=== PATIENT | male | born 1945 | race Caucasian/White ===

== ENCOUNTER 2022-11-23 19:25 | Inpatient (IN) | payer OTHER ==
[~2022-11-23] VITALS: Ht 175.3 cm; Wt 108.9 kg
[~2022-11-23 19:25] MED LIST: AUG875 PO; IPRA3AMP9 INH; METF-518 PO
[2022-11-23 19:32] VITALS: BP_SYST 133; PULSE 89; RESP 24; TEMP 98.5; O2SAT 97
[2022-11-23] MEDS ORDERED: NACL 0.9% 1,000 ML IV ONE ×2 (20:30→22:45)
[2022-11-23 21:39] LABS: BASOPHILS % (AUTO) 0.2 % (0.0-2.0); HEMATOCRIT 46.1 % (36-54); HEMOGLOBIN 15.1 g/dL (14.0-18.0); LYMPHOCYTES # (AUTO) 0.6 K/uL (1.0-5.5); LYMPHOCYTES % (AUTO) 5.9 % (20.5-51.5); MEAN CORPUSCULAR HEMOGLOBIN 29 pg (27-31); MEAN CORPUSCULAR HGB CONC 33 % (32-36); MEAN CORPUSCULAR VOLUME 89 fL (79.0-98.0); MONOCYTES % (AUTO) 9.9 % (1.7-9.3); NEUTROPHILS # (AUTO) 8.2 K/uL (1.8-7.7); PLATELET COUNT (AUTO) 136 K/uL (130-430); RED BLOOD CELL COUNT(AUTO) 5.21 MIL/uL (4.2-6.2); RED CELL DISTRIBUTION WIDTH 13.2 % (9.0-15.0); WHITE BLOOD COUNT (AUTO) 9.7 K/uL (4.8-10.8)
[2022-11-23 21:51] LABS: ALANINE AMINOTRANSFERASE 43 U/L (12-78); ALBUMIN 2.5 g/dL (3.4-4.8); ANION GAP 4 (5-15); ASPARTATE AMINOTRANSFERASE 71 U/L (10-37); CARBON DIOXIDE 28 mmol/L (23-29); CHLORIDE 96 mmol/L (98-107); CREATININE 1.22 mg/dL (0.55-1.30); GLUCOSE 131 mg/dL (74-106); POTASSIUM 3.2 mmol/L (3.5-5.1); SODIUM SERUM 128 mmol/L (136-145); TOTAL BILIRUBIN 0.6 mg/dL (0.0-1.0); TOTAL PROTEIN, SERUM 5.7 g/dL (6.4-8.3); UREA NITROGEN, BLOOD 17 mg/dL (8-21)
[2022-11-23 21:54] LABS: LIPASE 268 U/L (73-393)
[2022-11-24] VITALS (9 sets, daily range): BP systolic 113–128; PULSE 82–98; RESP 16–19; TEMP 97.6–99.9; O2SAT 94–98
[2022-11-24 00:20] LABS: BILIRUBIN,URINE NEGATIVE (NEGATIVE); BLOOD, URINE 3+ (NEGATIVE); CLARITY/URINE CLEAR (CLEAR); COLOR,URINE YELLOW (YELLOW); GLUCOSE,URINE TRACE (NEGATIVE); KETONES,URINE NEGATIVE (NEGATIVE); LEUKOCYTE ESTERASE ,URINE NEGATIVE (NEGATIVE); NITRITE, URINE NEGATIVE (NEGATIVE); PROTEIN URINE 2+ (NEGATIVE); UROBILINOGEN,URINE 0.2 (0.2-1.0)
[2022-11-24 00:41] LABS: BACTERIA,URINE FEW /HPF (None Seen)
[2022-11-24] MEDS ORDERED: cefTRIAXone 1 GM IVPB PREMIX 50 ML IV ONE (02:45)
[2022-11-24] MEDS ORDERED: ACETAMINOPHEN 500 MG TABLET PO ONE (03:15)
[2022-11-24] MEDS ORDERED: ALBMDI INH (07:28)
[2022-11-24] MEDS ORDERED: LEVO-62 PO ×2 (07:28)
[2022-11-24] MEDS ORDERED: TRAM50TA2 PO (07:28)
[2022-11-24] MEDS ORDERED: IBUP-1969 PO ×2 (07:28)
[2022-11-24] MEDS ORDERED: BACITRACIN 1 GM OINT TP ONE (08:07)
[2022-11-24] MEDS ORDERED: IPRATROPIUM/ALBUTEROL SULFATE 3 ML AMPUL.NEB (DUONEB) INH ONE (08:45)
[2022-11-24] MEDS ORDERED: FLUT1DIS3 INH (09:12)
[2022-11-24] MEDS: D5/0.45 NS 1,000 ML IV SCH ×2 (09:24→19:00)
[2022-11-24] MEDS ORDERED: ALBUTEROL SULFATE 0.083% 2.5 MG/3 ML VIAL.NEB INH PRN (10:45)
[2022-11-24] MEDS ORDERED: traMADol HCL HCL 50 MG TABLET (ULTRAM) PO PRN (10:45)
[2022-11-24] MEDS: IPRATROPIUM/ALBUTEROL SULFATE 3 ML AMPUL.NEB (DUONEB) INH SCH ×4 (11:27→23:15)
[2022-11-24 12:00] LABS: ABG O2 SAT% ESTIMATE 90.4 % (94.0-100.0); ALLEN'S TEST POSITIVE (P); BLOOD GAS BASE EXCESS -2.6 mmol/L (-3.0-3.0); BLOOD GAS HCO3 23.5 mmol/L (21.0-27.0); BLOOD GAS PCO2 45.1 mmHg (32.0-45.0); BLOOD GAS PH 7.334 (7.350-7.450); BLOOD GAS PO2 62.3 mmHg (75.0-100.0)
[2022-11-24] MEDS: PIPERACILLIN/TAZO 3.375/DEX-IS 50 ML IV SCH ×2 (14:46→21:46)
[2022-11-24] MEDS: BUDESONIDE 0.5 MG/2 ML AMPUL.NEB INH SCH (20:23)
[2022-11-24] MEDS: ACETAMINOPHEN 325 MG TABLET PO PRN (20:52)
[2022-11-25] VITALS (15 sets, daily range): BP systolic 100–128; PULSE 74–113; RESP 16–32; TEMP 98–99; O2SAT 93–99
[2022-11-25] MEDS: IPRATROPIUM/ALBUTEROL SULFATE 3 ML AMPUL.NEB (DUONEB) INH SCH ×6 (03:00→23:20)
[2022-11-25] MEDS ORDERED: guaiFENesin/DEXTROMETHORPHAN 10 ML UDC PO PRN (04:00)
[2022-11-25] MEDS ORDERED: DIPHENHYDRAMINE INJ 50 MG/ML VIAL IVP PRN (04:00)
[2022-11-25] MEDS: D5/0.45 NS 1,000 ML IV SCH ×2 (05:08→15:00)
[2022-11-25] MEDS: PIPERACILLIN/TAZO 3.375/DEX-IS 50 ML IV SCH ×3 (05:08→21:13)
[2022-11-25] MEDS: BUDESONIDE 0.5 MG/2 ML AMPUL.NEB INH SCH ×2 (07:17→20:21)
[2022-11-25] MEDS ORDERED: KCL 40 mEq in 100 mL (PREMIX) 100 ML IV ONE (11:30)
[2022-11-25] MEDS ORDERED: LORazepam 2 MG/ML VIAL IVP ONE (12:00)
[2022-11-25] MEDS: SODIUM CHLORIDE 3% *HI-ALERT* 500 ML IV SCH (12:33)
[2022-11-25] MEDS ORDERED: POTASSIUM CHLORIDE 40 MEQ in NS 250 ML IV ONE (13:00)
[2022-11-25 18:51] LABS: BLOOD GAS PH 7.333 (7.350-7.450)
[2022-11-25 18:53] LABS: ABG O2 SAT% ESTIMATE 92.2 % (94.0-100.0); BLOOD GAS HCO3 30.6 mmol/L (21.0-27.0); BLOOD GAS PCO2 58.9 mmHg (32.0-45.0); BLOOD GAS PO2 68.5 mmHg (75.0-100.0)
[2022-11-25 18:54] LABS: ALLEN'S TEST POSITIVE (P)
[2022-11-25 19:02] LABS: BASOPHILS % (AUTO) 0.3 % (0.0-2.0); EOSINOPHILS # (AUTO) 0.1 K/uL (0.0-0.4); EOSINOPHILS % (AUTO) 0.8 % (0.0-4.0); HEMATOCRIT 46.2 % (36-54); HEMOGLOBIN 14.9 g/dL (14.0-18.0); LYMPHOCYTES # (AUTO) 0.7 K/uL (1.0-5.5); LYMPHOCYTES % (AUTO) 4.4 % (20.5-51.5); MEAN CORPUSCULAR HEMOGLOBIN 29 pg (27-31); MEAN CORPUSCULAR HGB CONC 32 % (32-36); MEAN CORPUSCULAR VOLUME 90 fL (79.0-98.0); MONOCYTES # (AUTO) 1.4 K/uL (0.0-1.0); MONOCYTES % (AUTO) 8.7 % (1.7-9.3); NEUTROPHILS # (AUTO) 14.2 K/uL (1.8-7.7); NEUTROPHILS % (AUTO) 85.8 % (40.0-70.0); PLATELET COUNT (AUTO) 210 K/uL (130-430); RED BLOOD CELL COUNT(AUTO) 5.16 MIL/uL (4.2-6.2); RED CELL DISTRIBUTION WIDTH 13.7 % (9.0-15.0); WHITE BLOOD COUNT (AUTO) 16.5 K/uL (4.8-10.8)
[2022-11-25] MEDS: AZITHROMYCIN 500 MG in NS 250 ML IV SCH (21:12)
[2022-11-26] VITALS (29 sets, daily range): BP systolic 99–139; PULSE 79–112; RESP 14–39; TEMP 96.4–97.9; O2SAT 91–100
[2022-11-26] MEDS: D5/0.45 NS 1,000 ML IV SCH ×2 (03:19→14:11)
[2022-11-26] MEDS: IPRATROPIUM/ALBUTEROL SULFATE 3 ML AMPUL.NEB (DUONEB) INH SCH ×6 (03:37→23:30)
[2022-11-26 05:02] LABS: ANION GAP 4 (5-15); CALCIUM 8.2 mg/dL (8.4-11.0); CARBON DIOXIDE 30 mmol/L (23-29); CHLORIDE 99 mmol/L (98-107); CREATININE 1.23 mg/dL (0.55-1.30); GLUCOSE 162 mg/dL (74-106); POTASSIUM 4.3 mmol/L (3.5-5.1); SODIUM SERUM 133 mmol/L (136-145); UREA NITROGEN, BLOOD 20 mg/dL (8-21)
[2022-11-26 05:05] LABS: BASOPHILS % (AUTO) 0.3 % (0.0-2.0); EOSINOPHILS % (AUTO) 0.1 % (0.0-4.0); HEMATOCRIT 44.8 % (36-54); HEMOGLOBIN 14.5 g/dL (14.0-18.0); LYMPHOCYTES # (AUTO) 0.5 K/uL (1.0-5.5); LYMPHOCYTES % (AUTO) 3.1 % (20.5-51.5); MEAN CORPUSCULAR HEMOGLOBIN 29 pg (27-31); MEAN CORPUSCULAR HGB CONC 32 % (32-36); MEAN CORPUSCULAR VOLUME 90 fL (79.0-98.0); MONOCYTES # (AUTO) 1.3 K/uL (0.0-1.0); MONOCYTES % (AUTO) 8.1 % (1.7-9.3); NEUTROPHILS # (AUTO) 14.4 K/uL (1.8-7.7); NEUTROPHILS % (AUTO) 88.4 % (40.0-70.0); PLATELET COUNT (AUTO) 194 K/uL (130-430); RED CELL DISTRIBUTION WIDTH 13.7 % (9.0-15.0); WHITE BLOOD COUNT (AUTO) 16.3 K/uL (4.8-10.8)
[2022-11-26] MEDS: PIPERACILLIN/TAZO 3.375/DEX-IS 50 ML IV SCH ×3 (05:05→21:29)
[2022-11-26] MEDS: BUDESONIDE 0.5 MG/2 ML AMPUL.NEB INH SCH ×2 (07:00→19:00)
[2022-11-26 08:00] LABS: BLOOD GAS PCO2 62.6 mmHg (32.0-45.0); BLOOD GAS PH 7.265 (7.350-7.450)
[2022-11-26 08:01] LABS: BLOOD GAS BASE EXCESS -0.8 mmol/L (-3.0-3.0); BLOOD GAS HCO3 27.8 mmol/L (21.0-27.0)
[2022-11-26 08:02] LABS: ABG O2 SAT% ESTIMATE 93.2 % (94.0-100.0); ALLEN'S TEST POSITIVE (P)
[2022-11-26] MEDS ORDERED: INSULIN REGULAR, HUMAN 100 UNITS/ML, 3 ML VIAL (humuLIN R) SUBCUT PRN (11:00)
[2022-11-26] MEDS: SODIUM CHLORIDE 3% *HI-ALERT* 500 ML IV SCH (12:00)
[2022-11-26] MEDS: AZITHROMYCIN 500 MG in NS 250 ML IV SCH (18:57)
[2022-11-27] VITALS (44 sets, daily range): BP systolic 98–158; PULSE 80–100; RESP 20–35; TEMP 96.8–97.3; O2SAT 91–99
[2022-11-27] MEDS: D5/0.45 NS 1,000 ML IV SCH ×3 (01:57→17:53)
[2022-11-27] MEDS: IPRATROPIUM/ALBUTEROL SULFATE 3 ML AMPUL.NEB (DUONEB) INH SCH ×6 (02:04→23:15)
[2022-11-27] MEDS: PIPERACILLIN/TAZO 3.375/DEX-IS 50 ML IV SCH ×3 (05:18→21:59)
[2022-11-27 05:44] LABS: BASOPHILS % (AUTO) 0.2 % (0.0-2.0); EOSINOPHILS # (AUTO) 0.1 K/uL (0.0-0.4); EOSINOPHILS % (AUTO) 0.8 % (0.0-4.0); HEMATOCRIT 39.8 % (36-54); HEMOGLOBIN 12.9 g/dL (14.0-18.0); LYMPHOCYTES # (AUTO) 0.5 K/uL (1.0-5.5); LYMPHOCYTES % (AUTO) 4.2 % (20.5-51.5); MEAN CORPUSCULAR HEMOGLOBIN 29 pg (27-31); MEAN CORPUSCULAR HGB CONC 32 % (32-36); MEAN CORPUSCULAR VOLUME 90 fL (79.0-98.0); MONOCYTES # (AUTO) 0.9 K/uL (0.0-1.0); MONOCYTES % (AUTO) 6.8 % (1.7-9.3); NEUTROPHILS # (AUTO) 11.1 K/uL (1.8-7.7); PLATELET COUNT (AUTO) 194 K/uL (130-430); WHITE BLOOD COUNT (AUTO) 12.6 K/uL (4.8-10.8)
[2022-11-27 05:52] LABS: ANION GAP 2 (5-15); CALCIUM 8.1 mg/dL (8.4-11.0); CARBON DIOXIDE 32 mmol/L (23-29); CHLORIDE 103 mmol/L (98-107); CREATININE 1.05 mg/dL (0.55-1.30); GLUCOSE 177 mg/dL (74-106); POTASSIUM 3.9 mmol/L (3.5-5.1); SODIUM SERUM 137 mmol/L (136-145); UREA NITROGEN, BLOOD 22 mg/dL (8-21)
[2022-11-27] MEDS: BUDESONIDE 0.5 MG/2 ML AMPUL.NEB INH SCH ×2 (08:52→20:05)
[2022-11-27 09:46] LABS: BLOOD GAS HCO3 30.5 mmol/L (21.0-27.0); BLOOD GAS PCO2 52.7 mmHg (32.0-45.0); BLOOD GAS PO2 72.3 mmHg (75.0-100.0)
[2022-11-27 09:47] LABS: ABG O2 SAT% ESTIMATE 94.1 % (94.0-100.0); ALLEN'S TEST POSITIVE (P)
[2022-11-27 12:04] LABS: INR 1.1 (0.80-1.20); PROTHROMBIN TIME 10.9 SECS (9.5-12.5)
[2022-11-27] MEDS: AZITHROMYCIN 500 MG in NS 250 ML IV SCH (18:24)
[2022-11-28] VITALS (46 sets, daily range): BP systolic 102–163; PULSE 76–95; RESP 19–45; TEMP 97–97.8; O2SAT 85–99
[2022-11-28] MEDS: D5/0.45 NS 1,000 ML IV SCH ×3 (01:39→14:01)
[2022-11-28] MEDS: IPRATROPIUM/ALBUTEROL SULFATE 3 ML AMPUL.NEB (DUONEB) INH SCH ×6 (02:50→22:50)
[2022-11-28 04:49] LABS: BASOPHILS % (AUTO) 0.4 % (0.0-2.0); EOSINOPHILS # (AUTO) 0.1 K/uL (0.0-0.4); EOSINOPHILS % (AUTO) 1.4 % (0.0-4.0); HEMATOCRIT 39.4 % (36-54); HEMOGLOBIN 12.6 g/dL (14.0-18.0); LYMPHOCYTES # (AUTO) 0.5 K/uL (1.0-5.5); LYMPHOCYTES % (AUTO) 5.7 % (20.5-51.5); MEAN CORPUSCULAR HEMOGLOBIN 29 pg (27-31); MEAN CORPUSCULAR HGB CONC 32 % (32-36); MEAN CORPUSCULAR VOLUME 90 fL (79.0-98.0); MONOCYTES # (AUTO) 0.7 K/uL (0.0-1.0); MONOCYTES % (AUTO) 7.9 % (1.7-9.3); NEUTROPHILS # (AUTO) 7.9 K/uL (1.8-7.7); NEUTROPHILS % (AUTO) 84.6 % (40.0-70.0); PLATELET COUNT (AUTO) 228 K/uL (130-430); RED BLOOD CELL COUNT(AUTO) 4.39 MIL/uL (4.2-6.2); RED CELL DISTRIBUTION WIDTH 13.9 % (9.0-15.0); WHITE BLOOD COUNT (AUTO) 9.3 K/uL (4.8-10.8)
[2022-11-28 05:20] LABS: ALANINE AMINOTRANSFERASE 40 U/L (12-78); ALBUMIN 1.7 g/dL (3.4-4.8); ANION GAP 1 (5-15); ASPARTATE AMINOTRANSFERASE 61 U/L (10-37); CARBON DIOXIDE 33 mmol/L (23-29); CHLORIDE 104 mmol/L (98-107); CREATININE 0.87 mg/dL (0.55-1.30); GLUCOSE 156 mg/dL (74-106); POTASSIUM 3.8 mmol/L (3.5-5.1); SODIUM SERUM 138 mmol/L (136-145); TOTAL BILIRUBIN 0.4 mg/dL (0.0-1.0); UREA NITROGEN, BLOOD 19 mg/dL (8-21)
[2022-11-28] MEDS: PIPERACILLIN/TAZO 3.375/DEX-IS 50 ML IV SCH ×3 (05:24→22:00)
[2022-11-28] MEDS: BUDESONIDE 0.5 MG/2 ML AMPUL.NEB INH SCH ×2 (07:47→20:25)
[2022-11-28 08:12] LABS: ALLEN'S TEST POSITIVE (P)
[2022-11-28 08:57] LABS: BLOOD GAS PH 7.328 (7.350-7.450)
[2022-11-28 08:58] LABS: BLOOD GAS PCO2 66.9 mmHg (32.0-45.0)
[2022-11-28 09:00] LABS: BLOOD GAS BASE EXCESS 5.9 mmol/L (-3.0-3.0); BLOOD GAS HCO3 34.3 mmol/L (21.0-27.0)
[2022-11-28 09:02] LABS: ABG O2 SAT% ESTIMATE 93.6 % (94.0-100.0)
[2022-11-28 14:06] LABS: WEST NILE VIRUS, IgG, SERUM Positive (Negative)
[2022-11-28] MEDS: AZITHROMYCIN 500 MG in NS 250 ML IV SCH (18:44)
[2022-11-29] VITALS (39 sets, daily range): BP systolic 95–162; PULSE 71–100; RESP 16–35; TEMP 96.6–98.1; O2SAT 90–96
[2022-11-29] MEDS: IPRATROPIUM/ALBUTEROL SULFATE 3 ML AMPUL.NEB (DUONEB) INH SCH ×6 (03:15→23:04)
[2022-11-29 05:01] LABS: BASOPHILS # (AUTO) 0.1 K/uL (0.0-0.2); BASOPHILS % (AUTO) 0.5 % (0.0-2.0); EOSINOPHILS # (AUTO) 0.2 K/uL (0.0-0.4); EOSINOPHILS % (AUTO) 1.6 % (0.0-4.0); HEMATOCRIT 40.5 % (36-54); LYMPHOCYTES # (AUTO) 0.9 K/uL (1.0-5.5); LYMPHOCYTES % (AUTO) 7.4 % (20.5-51.5); MEAN CORPUSCULAR HEMOGLOBIN 29 pg (27-31); MEAN CORPUSCULAR HGB CONC 32 % (32-36); MEAN CORPUSCULAR VOLUME 91 fL (79.0-98.0); MONOCYTES # (AUTO) 1.7 K/uL (0.0-1.0); MONOCYTES % (AUTO) 13.4 % (1.7-9.3); NEUTROPHILS # (AUTO) 9.7 K/uL (1.8-7.7); NEUTROPHILS % (AUTO) 77.1 % (40.0-70.0); PLATELET COUNT (AUTO) 250 K/uL (130-430); RED BLOOD CELL COUNT(AUTO) 4.47 MIL/uL (4.2-6.2); RED CELL DISTRIBUTION WIDTH 14.2 % (9.0-15.0); WHITE BLOOD COUNT (AUTO) 12.5 K/uL (4.8-10.8)
[2022-11-29 05:21] LABS: ALANINE AMINOTRANSFERASE 46 U/L (12-78); ALBUMIN 1.7 g/dL (3.4-4.8); ANION GAP 1 (5-15); ASPARTATE AMINOTRANSFERASE 55 U/L (10-37); CARBON DIOXIDE 32 mmol/L (23-29); CHLORIDE 104 mmol/L (98-107); CREATININE 0.84 mg/dL (0.55-1.30); GLUCOSE 152 mg/dL (74-106); POTASSIUM 4.3 mmol/L (3.5-5.1); SODIUM SERUM 137 mmol/L (136-145); TOTAL BILIRUBIN 0.6 mg/dL (0.0-1.0); TOTAL PROTEIN, SERUM 5.2 g/dL (6.4-8.3); UREA NITROGEN, BLOOD 14 mg/dL (8-21)
[2022-11-29] MEDS: PIPERACILLIN/TAZO 3.375/DEX-IS 50 ML IV SCH ×3 (05:36→21:30)
[2022-11-29] MEDS: BUDESONIDE 0.5 MG/2 ML AMPUL.NEB INH SCH ×2 (07:57→19:40)
[2022-11-29] MEDS ORDERED: FUROSEMIDE 40 MG/4 ML VIAL IVP ONE (08:45)
[2022-11-29 08:46] LABS: BLOOD GAS PCO2 45.1 mmHg (32.0-45.0); BLOOD GAS PH 7.426 (7.350-7.450); BLOOD GAS PO2 56.9 mmHg (75.0-100.0)
[2022-11-29 08:47] LABS: ABG O2 SAT% ESTIMATE 90.1 % (94.0-100.0); ALLEN'S TEST MODIFIED (P); BLOOD GAS BASE EXCESS 3.9 mmol/L (-3.0-3.0)
[2022-11-29] MEDS: D5/0.45 NS 1,000 ML IV SCH ×2 (09:41→19:54)
[2022-11-29] MEDS: AZITHROMYCIN 500 MG in NS 250 ML IV SCH (19:03)
[2022-11-29 19:06] LABS: MYCOPLASMA PNEUMONIAE IgM <770 U/mL (0-769)
[2022-11-30] VITALS (31 sets, daily range): BP systolic 131–180; PULSE 87–114; RESP 20–38; TEMP 97.7–98.4; O2SAT 85–97
[2022-11-30] MEDS: IPRATROPIUM/ALBUTEROL SULFATE 3 ML AMPUL.NEB (DUONEB) INH SCH ×6 (03:01→23:05)
[2022-11-30] MEDS: D5/0.45 NS 1,000 ML IV SCH ×2 (05:00→15:00)
[2022-11-30] MEDS: PIPERACILLIN/TAZO 3.375/DEX-IS 50 ML IV SCH ×3 (05:42→21:07)
[2022-11-30 05:58] LABS: BASOPHILS % (AUTO) 0.4 % (0.0-2.0); EOSINOPHILS # (AUTO) 0.1 K/uL (0.0-0.4); EOSINOPHILS % (AUTO) 0.8 % (0.0-4.0); HEMATOCRIT 43.7 % (36-54); HEMOGLOBIN 14.1 g/dL (14.0-18.0); LYMPHOCYTES # (AUTO) 0.6 K/uL (1.0-5.5); LYMPHOCYTES % (AUTO) 6.7 % (20.5-51.5); MEAN CORPUSCULAR HEMOGLOBIN 29 pg (27-31); MEAN CORPUSCULAR HGB CONC 32 % (32-36); MEAN CORPUSCULAR VOLUME 91 fL (79.0-98.0); MONOCYTES # (AUTO) 0.9 K/uL (0.0-1.0); NEUTROPHILS # (AUTO) 8.1 K/uL (1.8-7.7); NEUTROPHILS % (AUTO) 83.1 % (40.0-70.0); PLATELET COUNT (AUTO) 263 K/uL (130-430); RED BLOOD CELL COUNT(AUTO) 4.82 MIL/uL (4.2-6.2); RED CELL DISTRIBUTION WIDTH 13.9 % (9.0-15.0); WHITE BLOOD COUNT (AUTO) 9.7 K/uL (4.8-10.8)
[2022-11-30 06:25] LABS: ANION GAP 2 (5-15); CALCIUM 8.5 mg/dL (8.4-11.0); CARBON DIOXIDE 35 mmol/L (23-29); CHLORIDE 102 mmol/L (98-107); CREATININE 0.95 mg/dL (0.55-1.30); GLUCOSE 136 mg/dL (74-106); POTASSIUM 3.9 mmol/L (3.5-5.1); SODIUM SERUM 139 mmol/L (136-145); UREA NITROGEN, BLOOD 15 mg/dL (8-21)
[2022-11-30 07:04] LABS: ERYTHROCYTE SEDIMENTATION RATE 53 MM/HR (0-15)
[2022-11-30] MEDS: BUDESONIDE 0.5 MG/2 ML AMPUL.NEB INH SCH ×2 (07:18→19:55)
[2022-11-30] MEDS ORDERED: *TPN PER PHARMACY XX PRN (11:15)
[2022-11-30 11:43] LABS: PHOSPHORUS 2.3 mg/dL (2.7-4.5)
[2022-11-30] MEDS ORDERED: FUROSEMIDE 40 MG/4 ML VIAL IVP ONE (11:45)
[2022-11-30 12:17] LABS: INR 1.1 (0.80-1.20); PROTHROMBIN TIME 11.4 SECS (9.5-12.5)
[2022-11-30] MEDS ORDERED: cloNIDine HCL 0.1 MG TABLET PO PRN (15:45)
[2022-11-30] MEDS: ACETAMINOPHEN 325 MG TABLET PO PRN (17:48)
[2022-11-30] MEDS ORDERED: POTASSIUM CHLORIDE IV SCH ×8 (21:00)
[2022-11-30] MEDS ORDERED: SODIUM CHLORIDE IV SCH ×8 (21:00)
[2022-11-30] MEDS ORDERED: D5/0.45 NS 1,000 ML IV SCH (21:00)
[2022-11-30] MEDS ORDERED: [UNRECOGNIZED DRUG - OTHER] IV SCH ×8 (21:00)
[2022-11-30] MEDS ORDERED: TPN PERIPHERAL IV SCH ×8 (21:00)
[2022-11-30 23:06] LABS: COCCIDIOIDES AB IGG 0.4 IV (<=0.9); COCCIDIOIDES AB IGM 0.1 IV (<=0.9)
[2022-11-30 23:43] LABS: ABG O2 SAT% ESTIMATE 89.7 % (94.0-100.0); BLOOD GAS BASE EXCESS 8.9 mmol/L (-3.0-3.0); BLOOD GAS HCO3 47.5 mmol/L (21.0-27.0); BLOOD GAS PO2 90.2 mmHg (75.0-100.0)
[2022-11-30 23:50] LABS: BLOOD GAS PCO2 193.6 mmHg (32.0-45.0); BLOOD GAS PH 7.008 (7.350-7.450)
[2022-12-01] VITALS (35 sets, daily range): BP systolic 61–161; PULSE 81–117; RESP 16–41; TEMP 97.3–99.5; O2SAT 91–99
[2022-12-01] MEDS ORDERED: PROPOFOL DRIP 100 ML IV ONE (00:35)
[2022-12-01] MEDS: D5/0.45 NS 1,000 ML IV SCH ×3 (01:00→20:37)
[2022-12-01] MEDS ORDERED: NOREPINEPHRINE 4 MG/4 ML VIAL IV ONE ×2 (01:12→03:41)
[2022-12-01 01:47] LABS: ABG O2 SAT% ESTIMATE 89.8 % (94.0-100.0); BLOOD GAS BASE EXCESS 5.6 mmol/L (-3.0-3.0); BLOOD GAS HCO3 37.1 mmol/L (21.0-27.0); BLOOD GAS PO2 70.9 mmHg (75.0-100.0)
[2022-12-01 01:49] LABS: BLOOD GAS PCO2 92.4 mmHg (32.0-45.0); BLOOD GAS PH 7.222 (7.350-7.450)
[2022-12-01] MEDS ORDERED: NOREPINEPHRINE BITARTRATE 4 MG in NS 246 ML IV PRN (02:15)
[2022-12-01] MEDS ORDERED: SUCCINYLCHOLINE CHLORIDE 20 MG/ML(QUELICIN) IVP ONE (02:15)
[2022-12-01] MEDS ORDERED: ETOMIDATE 20 MG/ 10 ML VIAL (AMIDATE) IVP ONE (02:15)
[2022-12-01] MEDS: IPRATROPIUM/ALBUTEROL SULFATE 3 ML AMPUL.NEB (DUONEB) INH SCH ×6 (03:05→23:11)
[2022-12-01] MEDS: PROPOFOL DRIP 100 ML IV PRN ×2 (03:37→14:13)
[2022-12-01] MEDS: NOREPINEPHRINE BITARTRATE 16 MG in NS 234 ML IV PRN (04:10)
[2022-12-01] MEDS: PIPERACILLIN/TAZO 3.375/DEX-IS 50 ML IV SCH ×3 (05:07→21:02)
[2022-12-01 06:10] LABS: BASOPHILS % (AUTO) 0.2 % (0.0-2.0); EOSINOPHILS % (AUTO) 0.2 % (0.0-4.0); HEMOGLOBIN 13.7 g/dL (14.0-18.0); LYMPHOCYTES # (AUTO) 1.1 K/uL (1.0-5.5); LYMPHOCYTES % (AUTO) 5.7 % (20.5-51.5); MEAN CORPUSCULAR HEMOGLOBIN 29 pg (27-31); MEAN CORPUSCULAR HGB CONC 32 % (32-36); MEAN CORPUSCULAR VOLUME 91 fL (79.0-98.0); MONOCYTES # (AUTO) 1.6 K/uL (0.0-1.0); MONOCYTES % (AUTO) 8.6 % (1.7-9.3); NEUTROPHILS # (AUTO) 15.9 K/uL (1.8-7.7); NEUTROPHILS % (AUTO) 85.3 % (40.0-70.0); PLATELET COUNT (AUTO) 314 K/uL (130-430); RED CELL DISTRIBUTION WIDTH 14.2 % (9.0-15.0); WHITE BLOOD COUNT (AUTO) 18.7 K/uL (4.8-10.8)
[2022-12-01 06:46] LABS: ERYTHROCYTE SEDIMENTATION RATE 77 MM/HR (0-15)
[2022-12-01 06:47] LABS: ANION GAP 4 (5-15); CALCIUM 8.5 mg/dL (8.4-11.0); CARBON DIOXIDE 33 mmol/L (23-29); CHLORIDE 100 mmol/L (98-107); CREATININE 1.25 mg/dL (0.55-1.30); GLUCOSE 164 mg/dL (74-106); POTASSIUM 4.4 mmol/L (3.5-5.1); SODIUM SERUM 137 mmol/L (136-145); UREA NITROGEN, BLOOD 23 mg/dL (8-21)
[2022-12-01] MEDS: BUDESONIDE 0.5 MG/2 ML AMPUL.NEB INH SCH ×2 (07:28→19:45)
[2022-12-01] MEDS ORDERED: PANTOPRAZOLE SODIUM 40 MG in NS 50 ML IV SCH (08:00)
[2022-12-01] MEDS ORDERED: PANTOPRAZOLE SODIUM 40 MG/VIAL (PROTONIX) IVP SCH (09:00)
[2022-12-01] MEDS ORDERED: PANTOPRAZOLE SODIUM 40 MG/VIAL (PROTONIX) IVP ONE (09:15)
[2022-12-01 12:23] LABS: ABG O2 SAT% ESTIMATE 93.8 % (94.0-100.0); BLOOD GAS BASE EXCESS 11.6 mmol/L (-3.0-3.0); BLOOD GAS HCO3 35.3 mmol/L (21.0-27.0); BLOOD GAS PCO2 41.9 mmHg (32.0-45.0); BLOOD GAS PO2 60.8 mmHg (75.0-100.0)
[2022-12-01 12:24] LABS: BLOOD GAS PH 7.544 (7.350-7.450)
[2022-12-01] MEDS: FLUCONAZOLE 200 mg/ NS 100 ML IV SCH (17:00)
[2022-12-01] MEDS: PANTOPRAZOLE SODIUM 40 MG/VIAL (PROTONIX) IVP SCH (20:43)
[2022-12-02] VITALS (51 sets, daily range): BP systolic 93–135; PULSE 74–105; RESP 16–24; TEMP 98.1–100; O2SAT 90–100
[2022-12-02] MEDS: PROPOFOL DRIP 100 ML IV PRN ×2 (02:06→17:18)
[2022-12-02] MEDS: NOREPINEPHRINE BITARTRATE 16 MG in NS 234 ML IV PRN (02:14)
[2022-12-02] MEDS: IPRATROPIUM/ALBUTEROL SULFATE 3 ML AMPUL.NEB (DUONEB) INH SCH ×6 (02:45→22:50)
[2022-12-02 05:15] LABS: BASOPHILS # (AUTO) 0.1 K/uL (0.0-0.2); BASOPHILS % (AUTO) 0.7 % (0.0-2.0); EOSINOPHILS # (AUTO) 0.2 K/uL (0.0-0.4); EOSINOPHILS % (AUTO) 1.1 % (0.0-4.0); HEMATOCRIT 37.9 % (36-54); HEMOGLOBIN 12.3 g/dL (14.0-18.0); LYMPHOCYTES # (AUTO) 1.3 K/uL (1.0-5.5); LYMPHOCYTES % (AUTO) 7.4 % (20.5-51.5); MEAN CORPUSCULAR HEMOGLOBIN 29 pg (27-31); MEAN CORPUSCULAR HGB CONC 33 % (32-36); MEAN CORPUSCULAR VOLUME 91 fL (79.0-98.0); MONOCYTES # (AUTO) 1.2 K/uL (0.0-1.0); MONOCYTES % (AUTO) 7.1 % (1.7-9.3); NEUTROPHILS # (AUTO) 14.5 K/uL (1.8-7.7); NEUTROPHILS % (AUTO) 83.7 % (40.0-70.0); PLATELET COUNT (AUTO) 277 K/uL (130-430); RED BLOOD CELL COUNT(AUTO) 4.18 MIL/uL (4.2-6.2); RED CELL DISTRIBUTION WIDTH 13.9 % (9.0-15.0); WHITE BLOOD COUNT (AUTO) 17.3 K/uL (4.8-10.8)
[2022-12-02 05:26] LABS: ERYTHROCYTE SEDIMENTATION RATE 57 MM/HR (0-15)
[2022-12-02] MEDS: PIPERACILLIN/TAZO 3.375/DEX-IS 50 ML IV SCH ×3 (05:30→22:20)
[2022-12-02 05:50] LABS: ALANINE AMINOTRANSFERASE 92 U/L (12-78); ANION GAP 4 (5-15); ASPARTATE AMINOTRANSFERASE 58 U/L (10-37); CALCIUM 8.2 mg/dL (8.4-11.0); CARBON DIOXIDE 35 mmol/L (23-29); CHLORIDE 102 mmol/L (98-107); CREATININE 1.13 mg/dL (0.55-1.30); GLUCOSE 142 mg/dL (74-106); POTASSIUM 3.8 mmol/L (3.5-5.1); SODIUM SERUM 141 mmol/L (136-145); TOTAL BILIRUBIN 0.8 mg/dL (0.0-1.0); TOTAL PROTEIN, SERUM 5.3 g/dL (6.4-8.3); UREA NITROGEN, BLOOD 33 mg/dL (8-21)
[2022-12-02] MEDS: D5/0.45 NS 1,000 ML IV SCH ×2 (07:00→17:00)
[2022-12-02] MEDS: BUDESONIDE 0.5 MG/2 ML AMPUL.NEB INH SCH ×2 (07:25→19:45)
[2022-12-02] MEDS ORDERED: MIDAZOLAM HCL 5 MG/5 ML VIAL ONE (08:24)
[2022-12-02] MEDS ORDERED: SIMETHICONE 40 MG/0.6 ML ML ONE (08:24)
[2022-12-02] MEDS ORDERED: fentaNYL CITRATE/PF 100 MCG/2 ML AMP ONE (08:24)
[2022-12-02] MEDS: PANTOPRAZOLE SODIUM 40 MG/VIAL (PROTONIX) IVP SCH ×2 (10:17→21:08)
[2022-12-02] MEDS ORDERED: VANCOMYCIN HCL 1.25 GM/NS 250 ML IV ONE (13:00)
[2022-12-02] MEDS: FLUCONAZOLE 200 mg/ NS 100 ML IV SCH (17:15)
[2022-12-03] VITALS (58 sets, daily range): BP systolic 95–137; PULSE 71–100; RESP 13–20; TEMP 98.1–100.2; O2SAT 91–97
[2022-12-03] MEDS: D5/0.45 NS 1,000 ML IV SCH ×3 (01:17→23:02)
[2022-12-03] MEDS: IPRATROPIUM/ALBUTEROL SULFATE 3 ML AMPUL.NEB (DUONEB) INH SCH ×6 (03:20→23:24)
[2022-12-03 04:51] LABS: BASOPHILS % (AUTO) 0.3 % (0.0-2.0); EOSINOPHILS # (AUTO) 0.1 K/uL (0.0-0.4); EOSINOPHILS % (AUTO) 0.9 % (0.0-4.0); HEMATOCRIT 34.2 % (36-54); HEMOGLOBIN 11.2 g/dL (14.0-18.0); LYMPHOCYTES # (AUTO) 1.3 K/uL (1.0-5.5); LYMPHOCYTES % (AUTO) 9.1 % (20.5-51.5); MEAN CORPUSCULAR HEMOGLOBIN 29 pg (27-31); MEAN CORPUSCULAR HGB CONC 33 % (32-36); MEAN CORPUSCULAR VOLUME 90 fL (79.0-98.0); MONOCYTES # (AUTO) 1.1 K/uL (0.0-1.0); MONOCYTES % (AUTO) 7.7 % (1.7-9.3); NEUTROPHILS # (AUTO) 11.2 K/uL (1.8-7.7); PLATELET COUNT (AUTO) 228 K/uL (130-430); RED BLOOD CELL COUNT(AUTO) 3.81 MIL/uL (4.2-6.2); RED CELL DISTRIBUTION WIDTH 13.7 % (9.0-15.0); WHITE BLOOD COUNT (AUTO) 13.7 K/uL (4.8-10.8)
[2022-12-03] MEDS: PIPERACILLIN/TAZO 3.375/DEX-IS 50 ML IV SCH ×3 (05:25→21:30)
[2022-12-03 05:34] LABS: ANION GAP 3 (5-15); CALCIUM 8.1 mg/dL (8.4-11.0); CARBON DIOXIDE 33 mmol/L (23-29); CHLORIDE 101 mmol/L (98-107); CREATININE 1.02 mg/dL (0.55-1.30); GLUCOSE 143 mg/dL (74-106); POTASSIUM 3.5 mmol/L (3.5-5.1); SODIUM SERUM 137 mmol/L (136-145); UREA NITROGEN, BLOOD 31 mg/dL (8-21)
[2022-12-03] MEDS: BUDESONIDE 0.5 MG/2 ML AMPUL.NEB INH SCH ×2 (07:22→20:04)
[2022-12-03] MEDS: PROPOFOL DRIP 100 ML IV PRN (09:26)
[2022-12-03] MEDS: PANTOPRAZOLE SODIUM 40 MG/VIAL (PROTONIX) IVP SCH ×2 (10:00→21:30)
[2022-12-03] MEDS: ACYCLOVIR IV SCH ×2 (15:54→23:01)
[2022-12-03] MEDS: D5W IV SCH ×2 (15:54→23:01)
[2022-12-03] MEDS: FLUCONAZOLE 200 mg/ NS 100 ML IV SCH (18:13)
[2022-12-04] VITALS (29 sets, daily range): BP systolic 88–128; PULSE 65–91; RESP 17–20; TEMP 97.2–99.6; O2SAT 91–100
[2022-12-04] MEDS: IPRATROPIUM/ALBUTEROL SULFATE 3 ML AMPUL.NEB (DUONEB) INH SCH ×6 (03:47→23:05)
[2022-12-04 05:07] LABS: BASOPHILS % (AUTO) 0.3 % (0.0-2.0); EOSINOPHILS # (AUTO) 0.1 K/uL (0.0-0.4); EOSINOPHILS % (AUTO) 1.3 % (0.0-4.0); HEMATOCRIT 34.7 % (36-54); HEMOGLOBIN 11.2 g/dL (14.0-18.0); LYMPHOCYTES % (AUTO) 9.6 % (20.5-51.5); MEAN CORPUSCULAR HEMOGLOBIN 29 pg (27-31); MEAN CORPUSCULAR HGB CONC 32 % (32-36); MEAN CORPUSCULAR VOLUME 91 fL (79.0-98.0); MONOCYTES # (AUTO) 0.7 K/uL (0.0-1.0); MONOCYTES % (AUTO) 7.1 % (1.7-9.3); NEUTROPHILS # (AUTO) 8.2 K/uL (1.8-7.7); NEUTROPHILS % (AUTO) 81.7 % (40.0-70.0); PLATELET COUNT (AUTO) 197 K/uL (130-430); RED BLOOD CELL COUNT(AUTO) 3.83 MIL/uL (4.2-6.2); RED CELL DISTRIBUTION WIDTH 13.6 % (9.0-15.0); WHITE BLOOD COUNT (AUTO) 10.1 K/uL (4.8-10.8)
[2022-12-04] MEDS: PROPOFOL DRIP 100 ML IV PRN (05:18)
[2022-12-04] MEDS: PIPERACILLIN/TAZO 3.375/DEX-IS 50 ML IV SCH ×3 (05:19→21:17)
[2022-12-04 05:27] LABS: ANION GAP 5 (5-15); CALCIUM 7.9 mg/dL (8.4-11.0); CARBON DIOXIDE 31 mmol/L (23-29); CHLORIDE 102 mmol/L (98-107); CREATININE 0.94 mg/dL (0.55-1.30); GLUCOSE 135 mg/dL (74-106); POTASSIUM 3.2 mmol/L (3.5-5.1); SODIUM SERUM 138 mmol/L (136-145); UREA NITROGEN, BLOOD 20 mg/dL (8-21)
[2022-12-04] MEDS: ACYCLOVIR IV SCH (06:44)
[2022-12-04] MEDS: D5W IV SCH (06:44)
[2022-12-04] MEDS: BUDESONIDE 0.5 MG/2 ML AMPUL.NEB INH SCH ×2 (07:13→19:56)
[2022-12-04] MEDS ORDERED: clonazePAM 0.5 MG TABLET NG SCH (09:00)
[2022-12-04] MEDS: PANTOPRAZOLE SODIUM 40 MG/VIAL (PROTONIX) IVP SCH ×2 (10:37→21:16)
[2022-12-04] MEDS: D5/0.45 NS 1,000 ML IV SCH (10:39)
[2022-12-04 13:42] LABS: ABG O2 SAT% ESTIMATE 97.1 % (94.0-100.0); BLOOD GAS BASE EXCESS 5.2 mmol/L (-3.0-3.0); BLOOD GAS HCO3 30.5 mmol/L (21.0-27.0); BLOOD GAS PCO2 46.5 mmHg (32.0-45.0); BLOOD GAS PH 7.434 (7.350-7.450); BLOOD GAS PO2 90.1 mmHg (75.0-100.0)
[2022-12-04] MEDS: FLUCONAZOLE 200 mg/ NS 100 ML IV SCH (17:39)
[2022-12-05] VITALS (37 sets, daily range): BP systolic 85–136; PULSE 60–90; RESP 8–28; TEMP 97.4–98.7; O2SAT 91–99
[2022-12-05] MEDS: D5/0.45 NS 1,000 ML IV SCH ×2 (02:51→14:19)
[2022-12-05] MEDS: IPRATROPIUM/ALBUTEROL SULFATE 3 ML AMPUL.NEB (DUONEB) INH SCH ×6 (03:00→23:17)
[2022-12-05] MEDS: PIPERACILLIN/TAZO 3.375/DEX-IS 50 ML IV SCH ×3 (05:08→22:48)
[2022-12-05 05:33] LABS: BASOPHILS # (AUTO) 0.2 K/uL (0.0-0.2); EOSINOPHILS # (AUTO) 0.1 K/uL (0.0-0.4); HEMATOCRIT 35.6 % (36-54); HEMOGLOBIN 11.4 g/dL (14.0-18.0); LYMPHOCYTES # (AUTO) 1.1 K/uL (1.0-5.5); LYMPHOCYTES % (AUTO) 10.8 % (20.5-51.5); MEAN CORPUSCULAR HEMOGLOBIN 29 pg (27-31); MEAN CORPUSCULAR HGB CONC 32 % (32-36); MEAN CORPUSCULAR VOLUME 91 fL (79.0-98.0); MONOCYTES # (AUTO) 0.7 K/uL (0.0-1.0); MONOCYTES % (AUTO) 6.7 % (1.7-9.3); NEUTROPHILS # (AUTO) 7.9 K/uL (1.8-7.7); NEUTROPHILS % (AUTO) 79.5 % (40.0-70.0); PLATELET COUNT (AUTO) 172 K/uL (130-430); RED CELL DISTRIBUTION WIDTH 14.1 % (9.0-15.0); WHITE BLOOD COUNT (AUTO) 9.9 K/uL (4.8-10.8)
[2022-12-05 06:12] LABS: ALANINE AMINOTRANSFERASE 82 U/L (12-78); ALBUMIN 1.7 g/dL (3.4-4.8); ANION GAP 3 (5-15); ASPARTATE AMINOTRANSFERASE 71 U/L (10-37); CALCIUM 8.1 mg/dL (8.4-11.0); CARBON DIOXIDE 32 mmol/L (23-29); CHLORIDE 100 mmol/L (98-107); CREATININE 0.94 mg/dL (0.55-1.30); GLUCOSE 123 mg/dL (74-106); POTASSIUM 3.9 mmol/L (3.5-5.1); SODIUM SERUM 135 mmol/L (136-145); TOTAL BILIRUBIN 0.8 mg/dL (0.0-1.0); TOTAL PROTEIN, SERUM 5.5 g/dL (6.4-8.3); UREA NITROGEN, BLOOD 17 mg/dL (8-21)
[2022-12-05] MEDS: BUDESONIDE 0.5 MG/2 ML AMPUL.NEB INH SCH ×2 (07:08→19:40)
[2022-12-05] MEDS: PANTOPRAZOLE SODIUM 40 MG/VIAL (PROTONIX) IVP SCH ×2 (08:16→21:09)
[2022-12-05 11:09] LABS: ABG O2 SAT% ESTIMATE 95.4 % (94.0-100.0); BLOOD GAS BASE EXCESS 4.5 mmol/L (-3.0-3.0); BLOOD GAS HCO3 29.7 mmol/L (21.0-27.0); BLOOD GAS PCO2 45.9 mmHg (32.0-45.0); BLOOD GAS PH 7.429 (7.350-7.450); BLOOD GAS PO2 75.4 mmHg (75.0-100.0)
[2022-12-05] MEDS: FLUCONAZOLE 200 mg/ NS 100 ML IV SCH (17:53)
[2022-12-06] VITALS (33 sets, daily range): BP systolic 12–145; PULSE 68–107; RESP 9–40; TEMP 97.7–98.6; O2SAT 93–98
[2022-12-06] MEDS: D5/0.45 NS 1,000 ML IV SCH ×3 (00:44→21:21)
[2022-12-06] MEDS: IPRATROPIUM/ALBUTEROL SULFATE 3 ML AMPUL.NEB (DUONEB) INH SCH ×6 (03:49→23:12)
[2022-12-06 05:36] LABS: BASOPHILS # (AUTO) 0.1 K/uL (0.0-0.2); BASOPHILS % (AUTO) 0.6 % (0.0-2.0); EOSINOPHILS # (AUTO) 0.1 K/uL (0.0-0.4); HEMATOCRIT 36.5 % (36-54); HEMOGLOBIN 11.6 g/dL (14.0-18.0); LYMPHOCYTES # (AUTO) 1.1 K/uL (1.0-5.5); LYMPHOCYTES % (AUTO) 9.1 % (20.5-51.5); MEAN CORPUSCULAR HEMOGLOBIN 29 pg (27-31); MEAN CORPUSCULAR HGB CONC 32 % (32-36); MEAN CORPUSCULAR VOLUME 90 fL (79.0-98.0); MONOCYTES # (AUTO) 0.8 K/uL (0.0-1.0); MONOCYTES % (AUTO) 6.8 % (1.7-9.3); NEUTROPHILS % (AUTO) 82.5 % (40.0-70.0); PLATELET COUNT (AUTO) 188 K/uL (130-430); RED BLOOD CELL COUNT(AUTO) 4.06 MIL/uL (4.2-6.2); RED CELL DISTRIBUTION WIDTH 13.8 % (9.0-15.0); WHITE BLOOD COUNT (AUTO) 12.1 K/uL (4.8-10.8)
[2022-12-06] MEDS: PIPERACILLIN/TAZO 3.375/DEX-IS 50 ML IV SCH ×3 (05:48→21:19)
[2022-12-06] MEDS: BUDESONIDE 0.5 MG/2 ML AMPUL.NEB INH SCH ×2 (07:33→20:19)
[2022-12-06] MEDS: PANTOPRAZOLE SODIUM 40 MG/VIAL (PROTONIX) IVP SCH ×2 (08:29→21:19)
[2022-12-06] MEDS ORDERED: TOBRAMYCIN 300MG/5ML INH AMPUL.NEB INH ONE (13:15)
[2022-12-06] MEDS: FLUCONAZOLE 200 mg/ NS 100 ML IV SCH (16:54)
[2022-12-06] MEDS: TOBRAMYCIN 300MG/5ML INH AMPUL.NEB INH SCH (20:20)
[2022-12-07] VITALS (34 sets, daily range): BP systolic 94–155; PULSE 65–101; RESP 12–31; TEMP 97.1–98.1; O2SAT 30–100
[2022-12-07] MEDS: IPRATROPIUM/ALBUTEROL SULFATE 3 ML AMPUL.NEB (DUONEB) INH SCH ×6 (03:12→23:15)
[2022-12-07] MEDS: D5/0.45 NS 1,000 ML IV SCH ×2 (04:38→16:21)
[2022-12-07 05:26] LABS: ANION GAP 5 (5-15); BASOPHILS % (AUTO) 0.3 % (0.0-2.0); CALCIUM 7.9 mg/dL (8.4-11.0); CARBON DIOXIDE 29 mmol/L (23-29); CHLORIDE 103 mmol/L (98-107); CREATININE 0.88 mg/dL (0.55-1.30); EOSINOPHILS # (AUTO) 0.1 K/uL (0.0-0.4); GLUCOSE 135 mg/dL (74-106); HEMATOCRIT 33.6 % (36-54); HEMOGLOBIN 10.7 g/dL (14.0-18.0); LYMPHOCYTES # (AUTO) 0.8 K/uL (1.0-5.5); LYMPHOCYTES % (AUTO) 8.6 % (20.5-51.5); MEAN CORPUSCULAR HEMOGLOBIN 29 pg (27-31); MEAN CORPUSCULAR HGB CONC 32 % (32-36); MEAN CORPUSCULAR VOLUME 91 fL (79.0-98.0); MONOCYTES # (AUTO) 0.7 K/uL (0.0-1.0); MONOCYTES % (AUTO) 7.3 % (1.7-9.3); NEUTROPHILS # (AUTO) 8.1 K/uL (1.8-7.7); NEUTROPHILS % (AUTO) 82.8 % (40.0-70.0); PLATELET COUNT (AUTO) 178 K/uL (130-430); POTASSIUM 3.2 mmol/L (3.5-5.1); RED BLOOD CELL COUNT(AUTO) 3.69 MIL/uL (4.2-6.2); RED CELL DISTRIBUTION WIDTH 13.5 % (9.0-15.0); SODIUM SERUM 137 mmol/L (136-145); UREA NITROGEN, BLOOD 18 mg/dL (8-21); WHITE BLOOD COUNT (AUTO) 9.8 K/uL (4.8-10.8)
[2022-12-07] MEDS: BUDESONIDE 0.5 MG/2 ML AMPUL.NEB INH SCH ×2 (07:14→20:19)
[2022-12-07] MEDS: TOBRAMYCIN 300MG/5ML INH AMPUL.NEB INH SCH ×2 (07:15→19:00)
[2022-12-07] MEDS: PANTOPRAZOLE SODIUM 40 MG/VIAL (PROTONIX) IVP SCH ×2 (08:16→20:37)
[2022-12-07] MEDS ORDERED: POTASSIUM CHLORIDE 20 MEQ/PKT PACKET NG ONE (10:30)
[2022-12-07 13:51] LABS: ABG O2 SAT% ESTIMATE 95.6 % (94.0-100.0); BLOOD GAS BASE EXCESS 1.7 mmol/L (-3.0-3.0); BLOOD GAS HCO3 26.4 mmol/L (21.0-27.0); BLOOD GAS PCO2 41.5 mmHg (32.0-45.0); BLOOD GAS PH 7.421 (7.350-7.450); BLOOD GAS PO2 76.7 mmHg (75.0-100.0)
[2022-12-07] MEDS: MEROPENEM 1 GM IVPB PREMIX 50 ML IV SCH ×2 (13:55→20:38)
[2022-12-07] MEDS: FLUCONAZOLE 200 mg/ NS 100 ML IV SCH (16:20)
[2022-12-08] VITALS (34 sets, daily range): BP systolic 122–167; PULSE 79–110; RESP 23–45; TEMP 97.6–98.6; O2SAT 91–97
[2022-12-08] MEDS: IPRATROPIUM/ALBUTEROL SULFATE 3 ML AMPUL.NEB (DUONEB) INH SCH ×6 (03:02→23:23)
[2022-12-08 04:17] LABS: BASOPHILS % (AUTO) 0.3 % (0.0-2.0); EOSINOPHILS # (AUTO) 0.1 K/uL (0.0-0.4); EOSINOPHILS % (AUTO) 0.8 % (0.0-4.0); HEMOGLOBIN 11.5 g/dL (14.0-18.0); LYMPHOCYTES # (AUTO) 1.1 K/uL (1.0-5.5); LYMPHOCYTES % (AUTO) 9.9 % (20.5-51.5); MEAN CORPUSCULAR HEMOGLOBIN 29 pg (27-31); MEAN CORPUSCULAR HGB CONC 32 % (32-36); MEAN CORPUSCULAR VOLUME 92 fL (79.0-98.0); MONOCYTES % (AUTO) 8.6 % (1.7-9.3); NEUTROPHILS # (AUTO) 9.1 K/uL (1.8-7.7); NEUTROPHILS % (AUTO) 80.4 % (40.0-70.0); PLATELET COUNT (AUTO) 224 K/uL (130-430); RED BLOOD CELL COUNT(AUTO) 3.93 MIL/uL (4.2-6.2); RED CELL DISTRIBUTION WIDTH 14.1 % (9.0-15.0); WHITE BLOOD COUNT (AUTO) 11.3 K/uL (4.8-10.8)
[2022-12-08 04:32] LABS: ERYTHROCYTE SEDIMENTATION RATE 59 MM/HR (0-15)
[2022-12-08 04:37] LABS: ANION GAP 6 (5-15); CALCIUM 8.2 mg/dL (8.4-11.0); CARBON DIOXIDE 29 mmol/L (23-29); CHLORIDE 109 mmol/L (98-107); CREATININE 0.79 mg/dL (0.55-1.30); GLUCOSE 126 mg/dL (74-106); POTASSIUM 3.5 mmol/L (3.5-5.1); SODIUM SERUM 144 mmol/L (136-145); UREA NITROGEN, BLOOD 12 mg/dL (8-21)
[2022-12-08] MEDS: MEROPENEM 1 GM IVPB PREMIX 50 ML IV SCH ×3 (05:13→21:16)
[2022-12-08] MEDS: D5/0.45 NS 1,000 ML IV SCH ×3 (05:13→23:13)
[2022-12-08] MEDS: TOBRAMYCIN 300MG/5ML INH AMPUL.NEB INH SCH ×2 (07:00→19:25)
[2022-12-08] MEDS: BUDESONIDE 0.5 MG/2 ML AMPUL.NEB INH SCH ×2 (07:07→19:25)
[2022-12-08 08:24] LABS: ALLEN'S TEST POSITIVE (P)
[2022-12-08] MEDS: PANTOPRAZOLE SODIUM 40 MG/VIAL (PROTONIX) IVP SCH ×2 (09:58→21:16)
[2022-12-09] VITALS (21 sets, daily range): BP systolic 120–171; PULSE 72–89; RESP 14–33; TEMP 97.3–98.6; O2SAT 93–100
[2022-12-09] MEDS: IPRATROPIUM/ALBUTEROL SULFATE 3 ML AMPUL.NEB (DUONEB) INH SCH ×6 (03:36→23:40)
[2022-12-09 04:57] LABS: BASOPHILS # (AUTO) 0.1 K/uL (0.0-0.2); BASOPHILS % (AUTO) 0.8 % (0.0-2.0); EOSINOPHILS # (AUTO) 0.1 K/uL (0.0-0.4); EOSINOPHILS % (AUTO) 1.4 % (0.0-4.0); HEMOGLOBIN 11.3 g/dL (14.0-18.0); LYMPHOCYTES # (AUTO) 1.3 K/uL (1.0-5.5); LYMPHOCYTES % (AUTO) 15.9 % (20.5-51.5); MEAN CORPUSCULAR HEMOGLOBIN 29 pg (27-31); MEAN CORPUSCULAR HGB CONC 32 % (32-36); MEAN CORPUSCULAR VOLUME 91 fL (79.0-98.0); MONOCYTES % (AUTO) 11.6 % (1.7-9.3); NEUTROPHILS % (AUTO) 70.3 % (40.0-70.0); PLATELET COUNT (AUTO) 256 K/uL (130-430); RED BLOOD CELL COUNT(AUTO) 3.85 MIL/uL (4.2-6.2); WHITE BLOOD COUNT (AUTO) 8.5 K/uL (4.8-10.8)
[2022-12-09 05:22] LABS: ERYTHROCYTE SEDIMENTATION RATE 43 MM/HR (0-15)
[2022-12-09] MEDS: MEROPENEM 1 GM IVPB PREMIX 50 ML IV SCH ×3 (05:46→22:02)
[2022-12-09 06:31] LABS: ALANINE AMINOTRANSFERASE 67 U/L (12-78); ALBUMIN 2.1 g/dL (3.4-4.8); ANION GAP 0 (5-15); ASPARTATE AMINOTRANSFERASE 52 U/L (10-37); CALCIUM 8.3 mg/dL (8.4-11.0); CARBON DIOXIDE 34 mmol/L (23-29); CHLORIDE 104 mmol/L (98-107); CREATININE 0.77 mg/dL (0.55-1.30); GLUCOSE 94 mg/dL (74-106); PHOSPHORUS 1.9 mg/dL (2.7-4.5); POTASSIUM 3.7 mmol/L (3.5-5.1); SODIUM SERUM 138 mmol/L (136-145); TOTAL BILIRUBIN 0.6 mg/dL (0.0-1.0); TOTAL PROTEIN, SERUM 5.8 g/dL (6.4-8.3); UREA NITROGEN, BLOOD 12 mg/dL (8-21)
[2022-12-09] MEDS: BUDESONIDE 0.5 MG/2 ML AMPUL.NEB INH SCH ×2 (07:13→19:49)
[2022-12-09] MEDS: TOBRAMYCIN 300MG/5ML INH AMPUL.NEB INH SCH ×2 (07:13→19:49)
[2022-12-09] MEDS: D5/0.45 NS 1,000 ML IV SCH ×2 (08:15→22:03)
[2022-12-09] MEDS: PANTOPRAZOLE SODIUM 40 MG/VIAL (PROTONIX) IVP SCH ×2 (08:21→22:01)
[2022-12-09] MEDS: NYSTATIN 15 GM TOPICAL POWDER TP SCH (22:02)
[2022-12-10] VITALS (10 sets, daily range): BP systolic 132–133; PULSE 94–102; RESP 18–28; TEMP 97.2–97.9; O2SAT 92–98
[2022-12-10] MEDS: IPRATROPIUM/ALBUTEROL SULFATE 3 ML AMPUL.NEB (DUONEB) INH SCH ×4 (05:40→16:44)
[2022-12-10] MEDS: MEROPENEM 1 GM IVPB PREMIX 50 ML IV SCH (06:17)
[2022-12-10] MEDS: D5/0.45 NS 1,000 ML IV SCH ×2 (06:18→15:00)
[2022-12-10] MEDS: BUDESONIDE 0.5 MG/2 ML AMPUL.NEB INH SCH (06:22)
[2022-12-10] MEDS: TOBRAMYCIN 300MG/5ML INH AMPUL.NEB INH SCH (06:23)
[2022-12-10] MEDS: PANTOPRAZOLE SODIUM 40 MG/VIAL (PROTONIX) IVP SCH ×3 (09:41→22:05)
[2022-12-10] MEDS: NYSTATIN 15 GM TOPICAL POWDER TP SCH ×2 (09:45→22:05)
[2022-12-10] MEDS: ENOXAPARIN SODIUM 40 MG/0.4 ML SYRINGE SUBCUT SCH (09:45)
[2022-12-10] MEDS: BALSAM PERU/CASTOR OIL 56.7 GM OINT...G. TP SCH (09:46)
[2022-12-10 20:42] LABS: INR 1.1 (0.80-1.20); PROTHROMBIN TIME 11.8 SECS (9.5-12.5)
[2022-12-11] VITALS (16 sets, daily range): BP systolic 117–148; PULSE 84–101; RESP 17–21; TEMP 97.3–98.6; O2SAT 94–100
[2022-12-11] MEDS: IPRATROPIUM/ALBUTEROL SULFATE 3 ML AMPUL.NEB (DUONEB) INH SCH ×8 (00:28→22:52)
[2022-12-11] MEDS: TOBRAMYCIN 300MG/5ML INH AMPUL.NEB INH SCH ×3 (00:28→20:35)
[2022-12-11] MEDS: BUDESONIDE 0.5 MG/2 ML AMPUL.NEB INH SCH ×3 (00:28→20:08)
[2022-12-11] MEDS: D5/0.45 NS 1,000 ML IV SCH ×3 (01:00→21:50)
[2022-12-11 07:48] LABS: ALANINE AMINOTRANSFERASE 43 U/L (12-78); ALBUMIN 2.2 g/dL (3.4-4.8); ANION GAP -3 (5-15); ASPARTATE AMINOTRANSFERASE 39 U/L (10-37); CALCIUM 9.1 mg/dL (8.4-11.0); CARBON DIOXIDE 35 mmol/L (23-29); CHLORIDE 104 mmol/L (98-107); CREATININE 0.75 mg/dL (0.55-1.30); GLUCOSE 112 mg/dL (74-106); POTASSIUM 4.1 mmol/L (3.5-5.1); SODIUM SERUM 136 mmol/L (136-145); TOTAL BILIRUBIN 0.5 mg/dL (0.0-1.0); TOTAL PROTEIN, SERUM 6.1 g/dL (6.4-8.3); UREA NITROGEN, BLOOD 19 mg/dL (8-21)
[2022-12-11 08:08] LABS: BASOPHILS # (AUTO) 0.1 K/uL (0.0-0.2); EOSINOPHILS # (AUTO) 0.2 K/uL (0.0-0.4); EOSINOPHILS % (AUTO) 2.9 % (0.0-4.0); HEMATOCRIT 39.8 % (36-54); HEMOGLOBIN 12.8 g/dL (14.0-18.0); LYMPHOCYTES # (AUTO) 1.2 K/uL (1.0-5.5); MEAN CORPUSCULAR HEMOGLOBIN 30 pg (27-31); MEAN CORPUSCULAR HGB CONC 32 % (32-36); MEAN CORPUSCULAR VOLUME 92 fL (79.0-98.0); MONOCYTES # (AUTO) 0.7 K/uL (0.0-1.0); NEUTROPHILS # (AUTO) 4.6 K/uL (1.8-7.7); NEUTROPHILS % (AUTO) 68.1 % (40.0-70.0); PLATELET COUNT (AUTO) 306 K/uL (130-430); RED BLOOD CELL COUNT(AUTO) 4.34 MIL/uL (4.2-6.2); RED CELL DISTRIBUTION WIDTH 14.5 % (9.0-15.0); WHITE BLOOD COUNT (AUTO) 6.8 K/uL (4.8-10.8)
[2022-12-11 08:37] LABS: ERYTHROCYTE SEDIMENTATION RATE 62 MM/HR (0-15)
[2022-12-11] MEDS: ENOXAPARIN SODIUM 40 MG/0.4 ML SYRINGE SUBCUT SCH (09:35)
[2022-12-11] MEDS: NYSTATIN 15 GM TOPICAL POWDER TP SCH ×2 (09:37→21:51)
[2022-12-11] MEDS: BALSAM PERU/CASTOR OIL 56.7 GM OINT...G. TP SCH (09:37)
[2022-12-11] MEDS: PANTOPRAZOLE SODIUM 40 MG/VIAL (PROTONIX) IVP SCH ×2 (10:17→21:51)
[2022-12-12] VITALS (14 sets, daily range): BP systolic 118–137; PULSE 79–98; RESP 17–26; TEMP 96.6–98.2; O2SAT 88–99
[2022-12-12] MEDS: IPRATROPIUM/ALBUTEROL SULFATE 3 ML AMPUL.NEB (DUONEB) INH SCH ×6 (02:19→23:18)
[2022-12-12] MEDS: D5/0.45 NS 1,000 ML IV SCH ×2 (05:51→17:00)
[2022-12-12 06:20] LABS: BASOPHILS # (AUTO) 0.1 K/uL (0.0-0.2); BASOPHILS % (AUTO) 0.8 % (0.0-2.0); EOSINOPHILS # (AUTO) 0.2 K/uL (0.0-0.4); EOSINOPHILS % (AUTO) 2.9 % (0.0-4.0); HEMATOCRIT 40.1 % (36-54); HEMOGLOBIN 12.6 g/dL (14.0-18.0); LYMPHOCYTES # (AUTO) 1.3 K/uL (1.0-5.5); LYMPHOCYTES % (AUTO) 16.7 % (20.5-51.5); MEAN CORPUSCULAR HEMOGLOBIN 29 pg (27-31); MEAN CORPUSCULAR HGB CONC 31 % (32-36); MEAN CORPUSCULAR VOLUME 92 fL (79.0-98.0); MONOCYTES # (AUTO) 0.8 K/uL (0.0-1.0); MONOCYTES % (AUTO) 10.1 % (1.7-9.3); NEUTROPHILS # (AUTO) 5.3 K/uL (1.8-7.7); NEUTROPHILS % (AUTO) 69.5 % (40.0-70.0); PLATELET COUNT (AUTO) 335 K/uL (130-430); RED BLOOD CELL COUNT(AUTO) 4.36 MIL/uL (4.2-6.2); RED CELL DISTRIBUTION WIDTH 14.3 % (9.0-15.0); WHITE BLOOD COUNT (AUTO) 7.6 K/uL (4.8-10.8)
[2022-12-12 06:29] LABS: ANION GAP 4 (5-15); CARBON DIOXIDE 34 mmol/L (23-29); CHLORIDE 103 mmol/L (98-107); CREATININE 0.88 mg/dL (0.55-1.30); GLUCOSE 110 mg/dL (74-106); POTASSIUM 4.1 mmol/L (3.5-5.1); SODIUM SERUM 141 mmol/L (136-145); UREA NITROGEN, BLOOD 18 mg/dL (8-21)
[2022-12-12 06:36] LABS: ERYTHROCYTE SEDIMENTATION RATE 70 MM/HR (0-15)
[2022-12-12] MEDS: TOBRAMYCIN 300MG/5ML INH AMPUL.NEB INH SCH (07:50)
[2022-12-12] MEDS: BUDESONIDE 0.5 MG/2 ML AMPUL.NEB INH SCH ×2 (07:54→19:29)
[2022-12-12] MEDS: ENOXAPARIN SODIUM 40 MG/0.4 ML SYRINGE SUBCUT SCH (08:53)
[2022-12-12] MEDS: NYSTATIN 15 GM TOPICAL POWDER TP SCH ×2 (08:53→23:02)
[2022-12-12] MEDS: PANTOPRAZOLE SODIUM 40 MG/VIAL (PROTONIX) IVP SCH ×2 (09:15→21:43)
[2022-12-12] MEDS: BALSAM PERU/CASTOR OIL 56.7 GM OINT...G. TP SCH (18:52)
[2022-12-13] VITALS (13 sets, daily range): BP systolic 122–131; PULSE 92–100; RESP 16–18; TEMP 97.3–97.5; O2SAT 10–96
[2022-12-13] MEDS: D5/0.45 NS 1,000 ML IV SCH (01:22)
[2022-12-13] MEDS: IPRATROPIUM/ALBUTEROL SULFATE 3 ML AMPUL.NEB (DUONEB) INH SCH ×6 (03:07→23:01)
[2022-12-13 04:41] LABS: BASOPHILS # (AUTO) 0.1 K/uL (0.0-0.2); BASOPHILS % (AUTO) 0.8 % (0.0-2.0); EOSINOPHILS # (AUTO) 0.2 K/uL (0.0-0.4); HEMATOCRIT 40.9 % (36-54); HEMOGLOBIN 13.2 g/dL (14.0-18.0); LYMPHOCYTES # (AUTO) 1.5 K/uL (1.0-5.5); LYMPHOCYTES % (AUTO) 17.6 % (20.5-51.5); MEAN CORPUSCULAR HEMOGLOBIN 30 pg (27-31); MEAN CORPUSCULAR HGB CONC 32 % (32-36); MEAN CORPUSCULAR VOLUME 92 fL (79.0-98.0); MONOCYTES # (AUTO) 0.8 K/uL (0.0-1.0); MONOCYTES % (AUTO) 9.6 % (1.7-9.3); NEUTROPHILS # (AUTO) 5.8 K/uL (1.8-7.7); PLATELET COUNT (AUTO) 377 K/uL (130-430); RED BLOOD CELL COUNT(AUTO) 4.47 MIL/uL (4.2-6.2); RED CELL DISTRIBUTION WIDTH 14.7 % (9.0-15.0); WHITE BLOOD COUNT (AUTO) 8.4 K/uL (4.8-10.8)
[2022-12-13 04:53] LABS: ERYTHROCYTE SEDIMENTATION RATE 85 MM/HR (0-15)
[2022-12-13 05:14] LABS: ALANINE AMINOTRANSFERASE 48 U/L (12-78); ALBUMIN 2.7 g/dL (3.4-4.8); ANION GAP 4 (5-15); ASPARTATE AMINOTRANSFERASE 53 U/L (10-37); CALCIUM 9.4 mg/dL (8.4-11.0); CARBON DIOXIDE 34 mmol/L (23-29); CHLORIDE 101 mmol/L (98-107); CREATININE 0.89 mg/dL (0.55-1.30); GLUCOSE 142 mg/dL (74-106); POTASSIUM 5.1 mmol/L (3.5-5.1); SODIUM SERUM 139 mmol/L (136-145); TOTAL BILIRUBIN 0.7 mg/dL (0.0-1.0); TOTAL PROTEIN, SERUM 6.3 g/dL (6.4-8.3); UREA NITROGEN, BLOOD 19 mg/dL (8-21)
[2022-12-13] MEDS: BUDESONIDE 0.5 MG/2 ML AMPUL.NEB INH SCH ×2 (07:17→19:37)
[2022-12-13] MEDS: NYSTATIN 15 GM TOPICAL POWDER TP SCH ×2 (09:00→22:10)
[2022-12-13] MEDS: PANTOPRAZOLE SODIUM 40 MG/VIAL (PROTONIX) IVP SCH ×2 (10:08→22:09)
[2022-12-13] MEDS: ENOXAPARIN SODIUM 40 MG/0.4 ML SYRINGE SUBCUT SCH (10:09)
[2022-12-13] MEDS: BALSAM PERU/CASTOR OIL 56.7 GM OINT...G. TP SCH (10:09)
[2022-12-13] MEDS ORDERED: OLANZapine 2.5 MG TABLET PO PRN (17:00)
[2022-12-14] VITALS (8 sets, daily range): BP systolic 124–151; PULSE 97–103; RESP 16–18; TEMP 96.7–98; O2SAT 93–98
[2022-12-14] MEDS: IPRATROPIUM/ALBUTEROL SULFATE 3 ML AMPUL.NEB (DUONEB) INH SCH ×6 (03:10→23:33)
[2022-12-14 04:42] LABS: BASOPHILS # (AUTO) 0.1 K/uL (0.0-0.2); BASOPHILS % (AUTO) 0.9 % (0.0-2.0); EOSINOPHILS # (AUTO) 0.4 K/uL (0.0-0.4); EOSINOPHILS % (AUTO) 3.5 % (0.0-4.0); HEMATOCRIT 41.6 % (36-54); HEMOGLOBIN 13.5 g/dL (14.0-18.0); LYMPHOCYTES # (AUTO) 1.5 K/uL (1.0-5.5); LYMPHOCYTES % (AUTO) 14.4 % (20.5-51.5); MEAN CORPUSCULAR HEMOGLOBIN 30 pg (27-31); MEAN CORPUSCULAR HGB CONC 32 % (32-36); MEAN CORPUSCULAR VOLUME 92 fL (79.0-98.0); MONOCYTES # (AUTO) 0.9 K/uL (0.0-1.0); MONOCYTES % (AUTO) 8.5 % (1.7-9.3); NEUTROPHILS # (AUTO) 7.5 K/uL (1.8-7.7); NEUTROPHILS % (AUTO) 72.7 % (40.0-70.0); PLATELET COUNT (AUTO) 363 K/uL (130-430); RED BLOOD CELL COUNT(AUTO) 4.54 MIL/uL (4.2-6.2); RED CELL DISTRIBUTION WIDTH 14.9 % (9.0-15.0); WHITE BLOOD COUNT (AUTO) 10.3 K/uL (4.8-10.8)
[2022-12-14] MEDS: NORMAL SALINE 5 ML DISP.SYRIN IVF SCH ×3 (05:18→21:43)
[2022-12-14 05:51] LABS: ANION GAP 4 (5-15); CALCIUM 9.8 mg/dL (8.4-11.0); CARBON DIOXIDE 33 mmol/L (23-29); CHLORIDE 101 mmol/L (98-107); CREATININE 0.87 mg/dL (0.55-1.30); GLUCOSE 118 mg/dL (74-106); POTASSIUM 4.6 mmol/L (3.5-5.1); SODIUM SERUM 138 mmol/L (136-145); UREA NITROGEN, BLOOD 20 mg/dL (8-21)
[2022-12-14] MEDS: BUDESONIDE 0.5 MG/2 ML AMPUL.NEB INH SCH ×2 (07:10→19:55)
[2022-12-14] MEDS: BALSAM PERU/CASTOR OIL 56.7 GM OINT...G. TP SCH (09:00)
[2022-12-14] MEDS: NYSTATIN 15 GM TOPICAL POWDER TP SCH ×2 (09:00→21:43)
[2022-12-14] MEDS: ENOXAPARIN SODIUM 40 MG/0.4 ML SYRINGE SUBCUT SCH (12:53)
[2022-12-14] MEDS: PANTOPRAZOLE SODIUM 40 MG/VIAL (PROTONIX) IVP SCH ×2 (12:55→21:36)
[2022-12-15] VITALS (13 sets, daily range): BP systolic 120–145; PULSE 72–96; RESP 16–18; TEMP 96–98; O2SAT 93–100
[2022-12-15] MEDS: IPRATROPIUM/ALBUTEROL SULFATE 3 ML AMPUL.NEB (DUONEB) INH SCH ×6 (04:31→23:15)
[2022-12-15] MEDS: NORMAL SALINE 5 ML DISP.SYRIN IVF SCH ×3 (05:01→21:47)
[2022-12-15 06:13] LABS: BASOPHILS # (AUTO) 0.1 K/uL (0.0-0.2); BASOPHILS % (AUTO) 0.8 % (0.0-2.0); EOSINOPHILS # (AUTO) 0.3 K/uL (0.0-0.4); EOSINOPHILS % (AUTO) 2.6 % (0.0-4.0); HEMATOCRIT 43.3 % (36-54); HEMOGLOBIN 13.7 g/dL (14.0-18.0); LYMPHOCYTES # (AUTO) 1.5 K/uL (1.0-5.5); LYMPHOCYTES % (AUTO) 13.1 % (20.5-51.5); MEAN CORPUSCULAR HEMOGLOBIN 29 pg (27-31); MEAN CORPUSCULAR HGB CONC 32 % (32-36); MEAN CORPUSCULAR VOLUME 92 fL (79.0-98.0); MONOCYTES % (AUTO) 8.7 % (1.7-9.3); NEUTROPHILS # (AUTO) 8.7 K/uL (1.8-7.7); NEUTROPHILS % (AUTO) 74.8 % (40.0-70.0); PLATELET COUNT (AUTO) 379 K/uL (130-430); RED BLOOD CELL COUNT(AUTO) 4.68 MIL/uL (4.2-6.2); WHITE BLOOD COUNT (AUTO) 11.7 K/uL (4.8-10.8)
[2022-12-15 06:35] LABS: ANION GAP 4 (5-15); CARBON DIOXIDE 34 mmol/L (23-29); CHLORIDE 101 mmol/L (98-107); CREATININE 0.98 mg/dL (0.55-1.30); GLUCOSE 122 mg/dL (74-106); POTASSIUM 4.7 mmol/L (3.5-5.1); SODIUM SERUM 139 mmol/L (136-145); UREA NITROGEN, BLOOD 33 mg/dL (8-21)
[2022-12-15] MEDS: BUDESONIDE 0.5 MG/2 ML AMPUL.NEB INH SCH ×2 (07:40→19:57)
[2022-12-15] MEDS: NYSTATIN 15 GM TOPICAL POWDER TP SCH ×2 (09:33→21:50)
[2022-12-15] MEDS: BALSAM PERU/CASTOR OIL 56.7 GM OINT...G. TP SCH (09:33)
[2022-12-15] MEDS: PANTOPRAZOLE SODIUM 40 MG/VIAL (PROTONIX) IVP SCH ×2 (09:35→21:47)
[2022-12-15] MEDS: ENOXAPARIN SODIUM 40 MG/0.4 ML SYRINGE SUBCUT SCH (09:35)
[2022-12-16] VITALS (13 sets, daily range): BP systolic 116–135; PULSE 87–97; RESP 15–22; TEMP 96.8–97.9; O2SAT 93–97
[2022-12-16] MEDS: IPRATROPIUM/ALBUTEROL SULFATE 3 ML AMPUL.NEB (DUONEB) INH SCH ×5 (04:59→19:43)
[2022-12-16 05:14] LABS: BASOPHILS # (AUTO) 0.1 K/uL (0.0-0.2); BASOPHILS % (AUTO) 0.7 % (0.0-2.0); EOSINOPHILS # (AUTO) 0.4 K/uL (0.0-0.4); HEMATOCRIT 43.6 % (36-54); HEMOGLOBIN 13.9 g/dL (14.0-18.0); LYMPHOCYTES % (AUTO) 9.7 % (20.5-51.5); MEAN CORPUSCULAR HEMOGLOBIN 30 pg (27-31); MEAN CORPUSCULAR HGB CONC 32 % (32-36); MEAN CORPUSCULAR VOLUME 93 fL (79.0-98.0); MONOCYTES # (AUTO) 0.7 K/uL (0.0-1.0); MONOCYTES % (AUTO) 6.7 % (1.7-9.3); NEUTROPHILS # (AUTO) 8.1 K/uL (1.8-7.7); NEUTROPHILS % (AUTO) 78.9 % (40.0-70.0); PLATELET COUNT (AUTO) 319 K/uL (130-430); RED BLOOD CELL COUNT(AUTO) 4.69 MIL/uL (4.2-6.2); RED CELL DISTRIBUTION WIDTH 15.5 % (9.0-15.0); WHITE BLOOD COUNT (AUTO) 10.3 K/uL (4.8-10.8)
[2022-12-16 06:22] LABS: ALANINE AMINOTRANSFERASE 40 U/L (12-78); ALBUMIN 2.7 g/dL (3.4-4.8); ANION GAP 2 (5-15); ASPARTATE AMINOTRANSFERASE 33 U/L (10-37); CALCIUM 9.7 mg/dL (8.4-11.0); CARBON DIOXIDE 36 mmol/L (23-29); CHLORIDE 100 mmol/L (98-107); CREATININE 0.94 mg/dL (0.55-1.30); GLUCOSE 123 mg/dL (74-106); POTASSIUM 4.4 mmol/L (3.5-5.1); SODIUM SERUM 138 mmol/L (136-145); TOTAL BILIRUBIN 0.7 mg/dL (0.0-1.0); UREA NITROGEN, BLOOD 28 mg/dL (8-21)
[2022-12-16] MEDS: NORMAL SALINE 5 ML DISP.SYRIN IVF SCH ×3 (06:32→22:11)
[2022-12-16] MEDS: BUDESONIDE 0.5 MG/2 ML AMPUL.NEB INH SCH ×2 (07:39→19:43)
[2022-12-16] MEDS: ENOXAPARIN SODIUM 40 MG/0.4 ML SYRINGE SUBCUT SCH (10:21)
[2022-12-16] MEDS: PANTOPRAZOLE SODIUM 40 MG/VIAL (PROTONIX) IVP SCH ×2 (10:21→20:14)
[2022-12-16] MEDS: BALSAM PERU/CASTOR OIL 56.7 GM OINT...G. TP SCH (10:22)
[2022-12-16] MEDS: NYSTATIN 15 GM TOPICAL POWDER TP SCH ×2 (13:14→20:14)
[2022-12-17] VITALS (11 sets, daily range): BP systolic 110–129; PULSE 89–93; RESP 18–19; TEMP 97.3–98.7; O2SAT 94–97
[2022-12-17] MEDS: IPRATROPIUM/ALBUTEROL SULFATE 3 ML AMPUL.NEB (DUONEB) INH SCH ×4 (01:04→15:57)
[2022-12-17 05:54] LABS: BASOPHILS # (AUTO) 0.1 K/uL (0.0-0.2); BASOPHILS % (AUTO) 0.7 % (0.0-2.0); EOSINOPHILS # (AUTO) 0.4 K/uL (0.0-0.4); EOSINOPHILS % (AUTO) 5.4 % (0.0-4.0); HEMATOCRIT 41.6 % (36-54); HEMOGLOBIN 13.2 g/dL (14.0-18.0); LYMPHOCYTES % (AUTO) 14.2 % (20.5-51.5); MEAN CORPUSCULAR HEMOGLOBIN 29 pg (27-31); MEAN CORPUSCULAR HGB CONC 32 % (32-36); MEAN CORPUSCULAR VOLUME 93 fL (79.0-98.0); MONOCYTES # (AUTO) 0.7 K/uL (0.0-1.0); NEUTROPHILS # (AUTO) 5.2 K/uL (1.8-7.7); NEUTROPHILS % (AUTO) 70.7 % (40.0-70.0); PLATELET COUNT (AUTO) 314 K/uL (130-430); RED BLOOD CELL COUNT(AUTO) 4.48 MIL/uL (4.2-6.2); RED CELL DISTRIBUTION WIDTH 14.5 % (9.0-15.0); WHITE BLOOD COUNT (AUTO) 7.3 K/uL (4.8-10.8)
[2022-12-17 05:57] LABS: ANION GAP 0 (5-15); CALCIUM 9.4 mg/dL (8.4-11.0); CARBON DIOXIDE 38 mmol/L (23-29); CHLORIDE 100 mmol/L (98-107); CREATININE 0.92 mg/dL (0.55-1.30); GLUCOSE 121 mg/dL (74-106); POTASSIUM 4.2 mmol/L (3.5-5.1); SODIUM SERUM 138 mmol/L (136-145); UREA NITROGEN, BLOOD 26 mg/dL (8-21)
[2022-12-17] MEDS: NORMAL SALINE 5 ML DISP.SYRIN IVF SCH ×2 (06:15→15:49)
[2022-12-17] MEDS: BUDESONIDE 0.5 MG/2 ML AMPUL.NEB INH SCH (07:14)
[2022-12-17] MEDS: NYSTATIN 15 GM TOPICAL POWDER TP SCH (08:56)
[2022-12-17] MEDS: BALSAM PERU/CASTOR OIL 56.7 GM OINT...G. TP SCH (08:56)
[2022-12-17] MEDS: PANTOPRAZOLE SODIUM 40 MG/VIAL (PROTONIX) IVP SCH (08:57)
[2022-12-17] MEDS: ENOXAPARIN SODIUM 40 MG/0.4 ML SYRINGE SUBCUT SCH (08:57)
== END 2022-12-17 16:40 | DRG 870 ==
LOC: SED 19:25 → SMU 11-24 08:54 → STU 11-25 12:18 → SIC 11-26 13:10 → STU 12-09 09:12 → SIC 12-09 09:14 → STU 12-09 09:24 → SMU 12-09 15:07
PROVIDERS: ADMIT Specialist; ATTEND Specialist
PROC: 5A09457 Assistance with Respiratory Ventilation, 24-96 Consecutive Hours, Continuous Positive Airway Pressure (ICD-10-PCS; 2022-11-25)
PROC: 5A09357 Assistance with Respiratory Ventilation, Less than 24 Consecutive Hours, Continuous Positive Airway Pressure (ICD-10-PCS; 2022-11-27)
PROC: 5A09357 Assistance with Respiratory Ventilation, Less than 24 Consecutive Hours, Continuous Positive Airway Pressure (ICD-10-PCS; 2022-11-28)
PROC: 5A09357 Assistance with Respiratory Ventilation, Less than 24 Consecutive Hours, Continuous Positive Airway Pressure (ICD-10-PCS; 2022-11-29)
PROC: 5A0935A Assistance with Respiratory Ventilation, Less than 24 Consecutive Hours, High Flow/Velocity Cannula (ICD-10-PCS; 2022-11-29)
PROC: 5A09357 Assistance with Respiratory Ventilation, Less than 24 Consecutive Hours, Continuous Positive Airway Pressure (ICD-10-PCS; 2022-11-30)
PROC: 5A0935A Assistance with Respiratory Ventilation, Less than 24 Consecutive Hours, High Flow/Velocity Cannula (ICD-10-PCS; 2022-11-30)
PROC: 5A1955Z Respiratory Ventilation, Greater than 96 Consecutive Hours (ICD-10-PCS; principal; 2022-12-01)
PROC: 0BH17EZ Insertion of Endotracheal Airway into Trachea, Via Natural or Artificial Opening (ICD-10-PCS; 2022-12-01)
PROC: 02HV33Z Insertion of Infusion Device into Superior Vena Cava, Percutaneous Approach (ICD-10-PCS; 2022-12-01)
PROC: B548ZZA Ultrasonography of Superior Vena Cava, Guidance (ICD-10-PCS; 2022-12-01)
PROC: 0DB78ZX Excision of Stomach, Pylorus, Via Natural or Artificial Opening Endoscopic, Diagnostic (ICD-10-PCS; 2022-12-02)
PROC: 5A09357 Assistance with Respiratory Ventilation, Less than 24 Consecutive Hours, Continuous Positive Airway Pressure (ICD-10-PCS; 2022-12-08)
PROC: 5A09357 Assistance with Respiratory Ventilation, Less than 24 Consecutive Hours, Continuous Positive Airway Pressure (ICD-10-PCS; 2022-12-09)
PROC: 5A09357 Assistance with Respiratory Ventilation, Less than 24 Consecutive Hours, Continuous Positive Airway Pressure (ICD-10-PCS; 2022-12-11)
PROC: 5A09357 Assistance with Respiratory Ventilation, Less than 24 Consecutive Hours, Continuous Positive Airway Pressure (ICD-10-PCS; 2022-12-12)
PROC: 5A09357 Assistance with Respiratory Ventilation, Less than 24 Consecutive Hours, Continuous Positive Airway Pressure (ICD-10-PCS; 2022-12-13)
DX: A41.9 Sepsis, unspecified organism (principal); G93.41 Metabolic encephalopathy; J96.02 Acute respiratory failure with hypercapnia; E43 Unspecified severe protein-calorie malnutrition; A92.31 West Nile virus infection with encephalitis; J96.01 Acute respiratory failure with hypoxia; J15.6 Pneumonia due to other Gram-negative bacteria; J16.8 Pneumonia due to other specified infectious organisms; K25.4 Chronic or unspecified gastric ulcer with hemorrhage; K29.81 Duodenitis with bleeding; K29.71 Gastritis, unspecified, with bleeding; K20.91 Esophagitis, unspecified with bleeding; J44.1 Chronic obstructive pulmonary disease with (acute) exacerbation; E87.1 Hypo-osmolality and hyponatremia; Z99.11 Dependence on respirator [ventilator] status; N39.0 Urinary tract infection, site not specified; Z16.24 Resistance to multiple antibiotics; G93.49 Other encephalopathy; J44.0 Chronic obstructive pulmonary disease with (acute) lower respiratory infection; E11.65 Type 2 diabetes mellitus with hyperglycemia; E11.42 Type 2 diabetes mellitus with diabetic polyneuropathy; R13.10 Dysphagia, unspecified; M19.90 Unspecified osteoarthritis, unspecified site; Z20.822 Contact with and (suspected) exposure to COVID-19; E83.39 Other disorders of phosphorus metabolism; E83.41 Hypermagnesemia; D64.9 Anemia, unspecified; E83.51 Hypocalcemia; E87.6 Hypokalemia; J40 Bronchitis, not specified as acute or chronic; F29 Unspecified psychosis not due to a substance or known physiological condition; Z68.35 Body mass index [BMI] 35.0-35.9, adult; Z74.01 Bed confinement status
CPT/HCPCS: 36415; 36600; 43239; 70450-TC; 70551; 71045; 71250-TC; 71275; 76376; 76604; 80048; 80053; 81000; 82140; 82803; 82962; 83605; 83690; 83735; 84100; 84443; 84484; 85025; 85379; 85610-TC; 85651-TC; 85730-TC; 86635; 86738; 86788; 86789; 87040; 87070-TC; 87081; 87086; 87205-TC; 87449; 87529; 88305; 88312; 88313; 92610-GN; 93005; 94002; 94003; 94640; 94660; 94664; 94668; 94760; 95816; 96361; 96365; 97110-GP; 97116-GP; 97163-GP; 97530-GP; 99285; A6209; C9113; G0378; J0133; J0330; J0456; J0696; J1200; J1450; J1650; J1815; J1940; J2060; J2185; J2250; J2543; J2704; J3010; J3260; J3370; J3480; J3490; J7042; J7050; J7060; J7131; J7626; Q9967